=== PATIENT | female | born 1975 | race African-American/Black ===

== ENCOUNTER 2017-09-14 11:12 | Emergency (ER) | payer OTHER ==
[~2017-09-14] VITALS: Ht 175.3 cm; Wt 68.0 kg
[2017-09-14 11:14] VITALS: BP 172/100; PULSE 125; RESP 18; TEMP 98.2; O2SAT 100
[2017-09-14 11:33] VITALS: BP 208/124; PULSE 106; RESP 18; O2SAT 99
[2017-09-14] MEDS ORDERED: SODIUM CHLOR 0.9% 1000 ML INJ 1,000 ML IV SCH (11:38)
--- NOTE | 2017-09-14 11:44 | PD ---
HPI Chief Complaint: Abdominal Pain Time Seen by Provider: 11:20 Travel History International Travel<30 days: No Contact w/Intl Traveler<30days: No Traveled to known affect area: No History of Present Illness HPI The patient is a 42-year-old [place] female who presents emergency department for abdominal pain. The patient states she developed abdominal pain yesterday while at rest. The abdominal pain is left lower quadrant, radiates to the back, was associated with one episode of diarrhea this morning which she describes as loose without any water or blood. There are no accompanying fever , chills, or sweats. The patient denies any dysuria, frequency, or urgency. The patient denies any history of nephrolithiasis or diverticulitis. She does have a history of previous tubal ligation. The patient denies any vaginal bleeding or discharge. Symptoms are moderate, worse with palpation, and there are no current alleviating factors. PFSH Past Medical History Hypertension: Yes Influenza Vaccination: No ?: Not LMP: 08/21/17 Tubal Ligation: Yes Social History Alcohol Use: Yes (daily wine) Tobacco Use: No Substance Use: No Allergies-Medications (Allergen,Severity, Reaction): Coded Allergies: No Known Allergies (Unverified , 09/14/17) Reported Meds & Prescriptions Reported Meds & Active Scripts Active No Active Prescriptions or Reported Medications Review of Systems Except as stated in HPI: all other systems reviewed are Neg General / Constitutional: No: Fever HENT: No: Lightheadedness Cardiovascular: No: Chest Pain or Discomfort Respiratory: No: Shortness of Breath Gastrointestinal: Positive: Diarrhea, Abdominal Pain, No: Nausea, Vomiting Genitourinary: No: Urgency, Frequency, Dysuria, Hematuria Physical Exam Narrative GENERAL: Awake, alert, pleasant 42 year-old female who appears her stated age and is in no acute respiratory distress. SKIN: Focused skin assessment warm/dry. HEAD: Atraumatic. Normocephalic. EYES: Pupils equal and round. No scleral icterus. No injection or drainage. ENT: No nasal bleeding or discharge. Mucous membranes pink and moist. NECK: Trachea midline. No JVD. CARDIOVASCULAR: Regular, tachycardic with a heart rate of 105. RESPIRATORY: No accessory muscle use. Clear to auscultation. Breath sounds equal bilaterally. GASTROINTESTINAL: Abdomen soft, tender palpation left lower quadrant. No guarding or rigidity. Back: No CVA tenderness. MUSCULOSKELETAL: No obvious deformities. No clubbing. No cyanosis. No edema. NEUROLOGICAL: Awake and alert. No obvious cranial nerve deficits. Motor grossly within normal limits. Normal speech. PSYCHIATRIC: Appropriate mood and affect; insight and judgment normal. Data Data Last Documented VS Vital Signs Date Time Temp Pulse Resp B/P (MAP) Pulse Ox O2 Delivery O2 Flow Rate FiO2 09/14/17 13:00 90 18 154/98 (116) 99 Room Air 09/14/17 11:14 98.2 Orders Orders Complete Blood Count With Diff (09/14/17 11:38) Comprehensive Metabolic Panel (09/14/17 11:38) Lipase (09/14/17 11:38) Lactic Acid (09/14/17 11:38) Urinalysis - C+S If Indicated (09/14/17 11:38) Ct Abd/Pel W/O Iv Contrast (09/14/17 11:38) Iv Access Insert/Monitor (09/14/17 11:38) Ecg Monitoring (09/14/17 11:38) Oximetry (09/14/17 11:38) Morphine Inj (Morphine Inj) (09/14/17 11:45) Ondansetron Inj (Zofran Inj) (09/14/17 11:45) Sodium Chlor 0.9% 1000 Ml Inj (Ns 1000 M (09/14/17 11:38) Sodium Chloride 0.9% Flush (Ns Flush) (09/14/17 11:45) Ketorolac Inj (Toradol Inj) (09/14/17 11:45) Ed Urine Pregnancytest Poc (09/14/17 11:38) Morphine Inj (Morphine Inj) (09/14/17 12:15) Gc And Chlamydia Pcr (09/14/17 14:52) Wet Prep Profile (09/14/17 14:52) Labs Laboratory Tests Test 09/14/17 11:50 09/14/17 12:55 09/14/17 15:00 White Blood Count 9.1 TH/MM3 Red Blood Count 4.51 MIL/MM3 Hemoglobin 14.3 GM/DL Hematocrit 40.0 % Mean Corpuscular Volume 88.6 FL Mean Corpuscular Hemoglobin 31.7 PG Mean Corpuscular Hemoglobin Concent 35.8 % Red Cell Distribution Width 14.8 % Platelet Count 228 TH/MM3 Mean Platelet Volume 8.8 FL Neutrophils (%) (Auto) 55.1 % Lymphocytes (%) (Auto) 32.7 % Monocytes (%) (Auto) 10.2 % Eosinophils (%) (Auto) 1.5 % Basophils (%) (Auto) 0.5 % Neutrophils # (Auto) 5.0 TH/MM3 Lymphocytes # (Auto) 3.0 TH/MM3 Monocytes # (Auto) 0.9 TH/MM3 Eosinophils # (Auto) 0.1 TH/MM3 Basophils # (Auto) 0.0 TH/MM3 CBC Comment DIFF FINAL Differential Comment Blood Urea Nitrogen 8 MG/DL Creatinine 0.97 MG/DL Random Glucose 105 MG/DL Total Protein 8.7 GM/DL Albumin 3.6 GM/DL Calcium Level 8.6 MG/DL Alkaline Phosphatase 71 U/L Aspartate Amino Transf (AST/SGOT) 59 U/L Alanine Aminotransferase (ALT/SGPT) 82 U/L Total Bilirubin 0.8 MG/DL Sodium Level 135 MEQ/L Potassium Level 3.6 MEQ/L Chloride Level 101 MEQ/L Carbon Dioxide Level 25.3 MEQ/L Anion Gap 9 MEQ/L Estimat Glomerular Filtration Rate 76 ML/MIN Lactic Acid Level 2.0 mmol/L Lipase 120 U/L Urine Color YELLOW Urine Turbidity HAZY Urine pH 7.0 Urine Specific [place] 1.009 Urine Protein NEG mg/dL Urine Glucose (UA) NEG mg/dL Urine Ketones NEG mg/dL Urine Occult Blood NEG Urine Nitrite NEG Urine Bilirubin NEG Urine Urobilinogen LESS THAN 2.0 MG/DL Urine Leukocyte Esterase NEG Urine RBC 1 /hpf Urine WBC 2 /hpf Urine Squamous Epithelial Cells 6 /hpf Urine Bacteria RARE /hpf Microscopic Urinalysis Comment CULT NOT INDICATED Clue Cells (Wet Prep) NONE SEEN Vaginal Trichomonas (Wet Prep) NONE SEEN Vaginal Yeast (Wet Prep) NONE SEEN MDM Medical Decision Making Medical Screen Exam Complete: Yes Emergency Medical Condition: Yes Medical Record Reviewed: Yes Interpretation(s) Laboratory Tests Test 09/14/17 11:50 09/14/17 12:55 White Blood Count 9.1 TH/MM3 Red Blood Count 4.51 MIL/MM3 Hemoglobin 14.3 GM/DL Hematocrit 40.0 % Mean Corpuscular Volume 88.6 FL Mean Corpuscular Hemoglobin 31.7 PG Mean Corpuscular Hemoglobin Concent 35.8 % Red Cell Distribution Width 14.8 % Platelet Count 228 TH/MM3 Mean Platelet Volume 8.8 FL Neutrophils (%) (Auto) 55.1 % Lymphocytes (%) (Auto) 32.7 % Monocytes (%) (Auto) 10.2 % Eosinophils (%) (Auto) 1.5 % Basophils (%) (Auto) 0.5 % Neutrophils # (Auto) 5.0 TH/MM3 Lymphocytes # (Auto) 3.0 TH/MM3 Monocytes # (Auto) 0.9 TH/MM3 Eosinophils # (Auto) 0.1 TH/MM3 Basophils # (Auto) 0.0 TH/MM3 CBC Comment DIFF FINAL Differential Comment Blood Urea Nitrogen 8 MG/DL Creatinine 0.97 MG/DL Random Glucose 105 MG/DL Total Protein 8.7 GM/DL Albumin 3.6 GM/DL Calcium Level 8.6 MG/DL Alkaline Phosphatase 71 U/L Aspartate Amino Transf (AST/SGOT) 59 U/L Alanine Aminotransferase (ALT/SGPT) 82 U/L Total Bilirubin 0.8 MG/DL Sodium Level 135 MEQ/L Potassium Level 3.6 MEQ/L Chloride Level 101 MEQ/L Carbon Dioxide Level 25.3 MEQ/L Anion Gap 9 MEQ/L Estimat Glomerular Filtration Rate 76 ML/MIN Lactic Acid Level 2.0 mmol/L Lipase 120 U/L Urine Color YELLOW Urine Turbidity HAZY Urine pH 7.0 Urine Specific [place] 1.009 Urine Protein NEG mg/dL Urine Glucose (UA) NEG mg/dL Urine Ketones NEG mg/dL Urine Occult Blood NEG Urine Nitrite NEG Urine Bilirubin NEG Urine Urobilinogen LESS THAN 2.0 MG/DL Urine Leukocyte Esterase NEG Urine RBC 1 /hpf Urine WBC 2 /hpf Urine Squamous Epithelial Cells 6 /hpf Urine Bacteria RARE /hpf Microscopic Urinalysis Comment CULT NOT INDICATED CT abdomen and pelvis reveals mild free fluid in the cul-de-sac. Suspected mild hepatic steatosis. Scattered few colonic diverticula without inflammatory change. Wet prep is negative Differential Diagnosis Differential diagnosis includes diverticulitis, ovarian torsion, nephrolithiasis , pyelonephritis, PID, cervicitis, UTI. Narrative Course IV was established, labs are drawn and sent, and the patient was placed on cardiac telemetry monitoring and continuous pulse oximetry monitoring. The patient was administer morphine, Toradol, Zofran, and IV fluids. UA was sent to lab and bedside UA test was obtained. Noncontrast CT of the abdomen and pelvis was performed to evaluate for diverticulitis. White count is unremarkable. LFTs and lipase were noted, slightly elevated AST and ALT. UA reveals bacteria but no wbc's. CT of the abdomen and pelvis reveals mild free fluid in the cul-de-sac, no evidence of diverticulitis. Patient did have hepatic steatosis on CT. The patient was reevaluated at 2:30 PM. Pelvic exam was performed, patient does have thin white discharge in vaginal vault. Wet prep was performed, negative. Moderate chlamydia are pending. Patient is unexplained pelvic pain, vitals are otherwise unremarkable. Patient is stable for outpatient follow-up. Diagnosis Primary Impression: Pelvic pain in female Patient Instructions: General Instructions Additional Instructions: Please provide a patient a copy of her CT results and lab results at discharge. Follow-up with her primary physician. Return if symptoms worsen or progress. Med/Other Pt SpecificInfo: Prescription(s) given Scripts Hydrocodone-Acetaminophen ([facility]) 5 Mg-325 Mg Tab 1 TAB PO Q6H Y for PAIN, #15 TAB 0 Refills Prov: Mk Mendes MD 09/14/17 Ibuprofen (Ibuprofen) 600 Mg Tab 600 MG PO Q6H Y for Pain/Inflammation, #20 TAB 0 Refills Prov: Mk Mendes MD 09/14/17 Disposition: 01 DISCHARGE HOME Condition: Stable Mk Mendes MD Sep 14, 2017 11:43
[2017-09-14] MEDS ORDERED: MORPHINE SULFATE 4 MG/ML INJ IV PUSH ONE (11:45)
[2017-09-14] MEDS ORDERED: ONDANSETRON HCL 4 MG/2 ML VIAL IVP ONE (11:45)
[2017-09-14] MEDS ORDERED: KETOROLAC TROMETHAMINE 30 MG/ML (IVP) VIAL IVP ONE (11:45)
[2017-09-14] MEDS ORDERED: SODIUM CHLORIDE 0.9% FLUSH 10 ML FLUSH IV FLUSH PRN (11:45)
[2017-09-14 11:57] VITALS: O2SAT 99
[2017-09-14 12:06] LABS: BASOPHIL % 0.5 % (0.0-2.0); EOSINOPHIL # 0.1 TH/MM3 (0-0.4); EOSINOPHIL % 1.5 % (0.0-4.0); HEMOGLOBIN 14.3 GM/DL (11.6-15.3); LYMPH % 32.7 % (9.0-44.0); MEAN CELL VOLUME 88.6 FL (80.0-100.0); MEAN CORPUSCULAR HEMOGLOBIN 31.7 PG (27.0-34.0); MEAN CORPUSCULAR HGB CONC 35.8 % (32.0-36.0); MEAN PLATELET VOLUME 8.8 FL (7.0-11.0); MONO % 10.2 % (0.0-8.0); MONOCYTE # 0.9 TH/MM3 (0-0.9); NEUT % 55.1 % (16.0-70.0); PLATELET COUNT 228 TH/MM3 (150-450); RED BLOOD COUNT 4.51 MIL/MM3 (4.00-5.30); RED CELL DISTRIBUTION WIDTH 14.8 % (11.6-17.2); WHITE BLOOD COUNT 9.1 TH/MM3 (4.0-11.0)
[2017-09-14] MEDS ORDERED: MORPHINE SULFATE 2 MG/ML INJ IV PUSH ONE (12:15)
[2017-09-14 12:24] LABS: ALBUMIN 3.6 GM/DL (3.4-5.0); AST (GOT) 59 U/L (15-37); BICARBONATE 25.3 MEQ/L (21.0-32.0); BLOOD UREA NITROGEN 8 MG/DL (7-18); CALCIUM 8.6 MG/DL (8.5-10.1); CHLORIDE 101 MEQ/L (98-107); CREATININE 0.97 MG/DL (0.50-1.00); GLOMERULAR FILTRATION RATE 76 ML/MIN (>89); GLUCOSE,RANDOM 105 MG/DL (74-106); LIPASE 120 U/L (73-393); SODIUM (NA) 135 MEQ/L (136-145)
[2017-09-14 12:26] LABS: ALT (GPT) 82 U/L (10-53)
[2017-09-14 12:28] LABS: ALKALINE PHOSPHATASE 71 U/L (45-117); TOTAL BILIRUBIN ADULT 0.8 MG/DL (0.2-1.0); TOTAL PROTEIN 8.7 GM/DL (6.4-8.2)
[2017-09-14 13:00] VITALS: BP 154/98; PULSE 90; RESP 18; O2SAT 99
[2017-09-14 13:15] LABS: BACTERIA, URINE RARE /hpf; BILIRUBIN, URINE NEG (NEG); BLOOD, URINE NEG (NEG); GLUCOSE,URINE NEG (NEG); KETONE, URINE NEG (NEG); NITRITE,URINE NEG (NEG); SQUAMOUS EPITHELIAL CELL URINE 6 /hpf (0-5); URINE COLOR YELLOW (YELLW/STRAW); URINE LEUKOCYTE ESTERASE NEG (NEG)
--- NOTE | 2017-09-14 14:27 | RADRPT ---
EXAM DATE/TIME: 09/14/2017 13:54 [facility] COMPARISON: No previous studies available for comparison. INDICATIONS : Lower abdominal pain that radiates to the back, pressure with urination. ORAL CONTRAST: No oral contrast ingested. RADIATION DOSE: 16.08 CTDIvol (mGy) MEDICAL HISTORY : Hypertension. SURGICAL HISTORY : Tubal ligation. ENCOUNTER: Initial ACUITY: 1 day PAIN SCALE: 5/10 LOCATION: Bilateral lower quadrant TECHNIQUE: Volumetric scanning of the abdomen and pelvis was performed. Using automated exposure control and ad justment of the mA and/or kV according to patient size, radiation dose was kept as low as reasonably achievable to obtain optimal diagnostic quality images. DICOM format image data is available electro nically for review and comparison. FINDINGS: LOWER LUNGS: The visualized lower lungs are clear. LIVER: There is mild decreased density throughout the liver. No focal hepatic lesion is seen. There is no d ilation of the biliary tree. No calcified gallstones. SPLEEN: Normal size without lesion. PANCREAS: Within normal limits. KIDNEYS: Normal in size and shape. There is no mass, stone, or hydronephrosis. ADRENAL GLANDS: Within normal limits. VASCULAR: There is no aortic aneurysm. BOWEL/MESENTERY: There are a few scattered colonic diverticula. No inflammatory change is seen. The appendix is normal . ABDOMINAL WALL: Within normal limits. RETROPERITONEUM: There is no lymphadenopathy. BLADDER: No wall thickening or mass. REPRODUCTIVE: No significant pelvic masses seen. There is mild free fluid in the cul-de-sac. INGUINAL: There is no lymphadenopathy or hernia. MUSCULOSKELETAL: Within normal limits for patient age. CONCLUSION: 1. Mild free fluid in the cul-de-sac. 2. Suspected mild hepatic steatosis. 3. Scattered few colonic diverticula without inflammatory change. Mike Azul MD on September 14, 2017 at 14:22 Board Certified Radiologist. This report was verified electronically.
[2017-09-14] MEDS ORDERED: NORC5TAB PO (15:41)
[2017-09-14] MEDS ORDERED: IBUP-232 PO (15:41)
[2017-09-14 16:02] VITALS: BP 157/98
== END 2017-09-14 16:05 | disposition home or self-care (01) ==
LOC: NEPC 11:12
DX: R10.2 Pelvic and perineal pain (principal); K76.0 Fatty (change of) liver, not elsewhere classified; R19.7 Diarrhea, unspecified; I10 Essential (primary) hypertension
CPT/HCPCS: 74176; 80053; 81001; 83605; 83690; 84703; 85025; 87210; 87491; 87591; 96374; 96375; 99285; J1885; J2270; J2405; J7030